=== PATIENT | male | born 1960 | race Caucasian/White ===

== ENCOUNTER 2021-07-02 07:38 | Emergency (ER) | payer SELFPAY ==
[~2021-07-02] VITALS: Ht 182.9 cm; Wt 105.0 kg
[2021-07-02] MEDS ORDERED: SYMBICORT 80-4.5MCG (08:14)
[2021-07-02] MEDS ORDERED: METFORMIN500 M2 PO (08:14)
[2021-07-02 08:20] LABS: HEMATOCRIT 47.3 % (39.0-50.0); HEMOGLOBIN 15.7 g/dl (14.0-18.0); IMMATURE GRANULOCYTES 0.4 % (0.0-5.0); MEAN CELL VOLUME 88.2 fL CALC (80.0-100.0); MEAN CORPUSCULAR HGB 29.3 pG CALC (26.0-32.0); MEAN CORPUSCULAR HGB CONC 33.2 g/dL CAL (32.0-36.0); NEUT# 2.52 thou/uL (1.82-7.42); RED BLOOD COUNT 5.36 mill/uL (4.70-6.10); RED CELL DISTRI WIDTH 12.3 % (11.5-15.5)
[2021-07-02 08:35] LABS: ANION GAP 13 (6-22 (CALC)); BILIRUBIN, TOTAL 0.6 mg/dL (0.0-1.4); BUN 16 mg/dL (8-23); BUN/CREATININE RATIO 17 (12-20 (CALC)); CARBON DIOXIDE 24 mmol/l (22-30); CHLORIDE 103 mmol/l (95-108); GFR > 60 ML/MIN (>=60 (CALC)); GFR FOR AFR.AMER. > 60 ML/MIN (>=60 (CALC)); POTASSIUM 4.2 mmol/l (3.5-5.1); SODIUM 137 mmol/l (137-146); TOTAL PROTEIN 7.6 g/dL (6.3-8.2)
[2021-07-02 08:37] LABS: ALKALINE PHOSPHATASE 85 u/l (38-126); SGOT/AST 37 u/l (19-48)
[2021-07-02] MEDS ORDERED: GLIPIZIDE5 M2 PO (10:44)
[2021-07-02] MEDS ORDERED: METFORMIN HCL1000 MG PO (10:44)
[2021-07-02 11:11] VITALS: BP 126/68
== END 2021-07-02 11:17 | disposition home or self-care (01) | DRG 639 ==
LOC: ED 07:38
PROVIDERS: Family Medicine
DX: E11.65 Type 2 diabetes mellitus with hyperglycemia (principal); I10 Essential (primary) hypertension; E66.9 Obesity, unspecified; Z68.31 Body mass index [BMI] 31.0-31.9, adult; Z79.84 Long term (current) use of oral hypoglycemic drugs